=== PATIENT | male | born 1995 | race African-American/Black ===

== ENCOUNTER 2020-06-26 01:46 | Inpatient (IN) | payer MEDICAID, OTHER, SELFPAY ==
[2020-06-26] MEDS ORDERED: Boostrix 0.5 ML (Tdap) VIAL ONE (01:49)
[2020-06-26] MEDS ORDERED: Succinylcholine 200 MG/10 ml SYRINGE FS ONE ×3 (01:51→11:42)
[2020-06-26] MEDS ORDERED: Fentanyl 100 MCG/2 ML VIAL ONE ×3 (01:58→02:23)
[2020-06-26 02:01] LABS: #Basophils 0.1 thou/uL (0.0-0.2); #Eosinphils 0.3 thou/uL (0.0-0.7); #Lymphocytes 5.8 thou/uL (1.20-3.40); #Monocytes 1.1 thou/uL (0.11-0.59); #Neutrophils 6.3 thou/uL (1.40-6.50); %Basophils 0.9 % (0.0-1.0); %Eosinophils 2.2 % (0.0-10.0); %Monocytes 7.9 % (0.0-10.0); %Neutrophils 46.1 % (42.0-75.0); Mean Corpuscular HGB CONC 34.7 g/dL (32.0-36.0); Mean Corpuscular Hemoglobin 33.7 pg (27.0-31.0); Mean Corpuscular Volume 97.4 fL (78.0-98.0); Platelet Count 299 thou/uL (130-400); RBC Distribution Width 11.8 % (11.5-14.5); Red Blood Cell (RBC) Count 4.15 mill/uL (4.70-6.10); White Blood Cell (WBC) Count 13.6 thou/uL (4.8-10.8)
[2020-06-26] MEDS ORDERED: Midazolam HCl 5 mg/ml Vial ONE (02:04)
[2020-06-26] MEDS ORDERED: Rocuronium Bromide 10 MG/ML (10ML VIAL) ONE ×3 (02:04→16:32)
[2020-06-26] MEDS ORDERED: Vecuronium 10 MG VIAL ONE (02:06)
[2020-06-26] MEDS ORDERED: Sterile Water 10 ML ONE (02:06)
[2020-06-26 02:10] LABS: INR-International Normal Ratio 1.1; PTT 36.1 sec (22.9-36.1); Prothrombin Time 14.6 sec (12.0-14.7)
[2020-06-26] MEDS ORDERED: Lidocaine 1% (PF) 30 ML VIAL ONE (02:13)
[2020-06-26 02:17] LABS: ALT (SGPT) 34 U/L (8-55); AST (SGOT) 35 U/L (5-34); Albumin 3.8 g/dL (3.5-5.0); Alkaline Phosphatase 74 U/L (40-110); BUN (Urea Nitrogen) 10 mg/dL (8.9-20.6); Bilirubin, Total 0.2 mg/dL (0.2-1.2); Calc. Creatinine Clearance 0 mL/min (70-130); Calcium 7.9 mg/dL (7.8-10.44); Chloride 109 mmol/L (98-107); Glucose 135 mg/dL (70-105); Protein, Total 6.8 g/dL (6.0-8.3); Sodium 138 mmol/L (136-145)
[2020-06-26 02:24] LABS: Carbon Dioxide Less than 8 mmol/L (22-29); Potassium 2.8 mmol/L (3.5-5.1)
[2020-06-26] MEDS ORDERED: Fentanyl CADD 100 ML IV SCH ×2 (02:30→19:00)
[2020-06-26] MEDS ORDERED: PROPOFOL 200 MG/20 ML VIAL ONE (02:38)
[2020-06-26] MEDS ORDERED: Calcium Chloride 1 GM/10 ML Abboject SYRINGE ONE ×2 (02:38→16:32)
[2020-06-26] MEDS ORDERED: Sodium Bicarb 50 MEQ/50 ML Abboject 8.4% SYRINGE ONE ×2 (02:38→17:07)
[2020-06-26 02:41] LABS: Actual Bicarbonate (HCO3a) 14.8 mEq/L (22-28); Analyzer IN Cardio ER; Base Excess (BEa) -11.9 mEq/L (-2.0 to +3.0); CO2 Tension 36.7 mmHg (35.0-45.0); Calcium, Ionized (arterial) 1.13 mmol/L (1.12-1.30); Carboxyhemoglobin (COHb) 3.7 gm% (0.0-3.0); Hemoglobin (Hb) 13.8 g/dL (14.0-18.0); Potassium - ABG Lab 3.47 mmol/L (3.70-5.30)
[2020-06-26 02:46] LABS: pH, Arterial 7.22 (7.35-7.45)
[2020-06-26 02:47] LABS: ALV-art Gradient 423.125 mmHg (0-20); Puncture Site LRA
[2020-06-26] MEDS ORDERED: Amiodarone 150 MG in Dextrose 5% in Water 100 ML IVPB SCH (03:00)
[2020-06-26] MEDS: Potassium Chloride 20 MEQ in Premix Bag 1 BAG IVPB SCH ×2 (03:20→05:56)
[2020-06-26] MEDS: Amiodarone 450 MG in Dextrose 5% in Water 250 ML IVPB SCH ×2 (03:22→14:38)
[2020-06-26] MEDS ORDERED: Propofol 1,000 MG/100 ML VIAL IV ONE (03:27)
[2020-06-26] MEDS: Lactated Ringer's 1,000 ML IV SCH ×2 (03:30→11:37)
[2020-06-26] MEDS ORDERED: Dextrose 50% Abboject 50 ML SYRINGE SLOW IVP PRN (04:09)
[2020-06-26] MEDS ORDERED: Dextrose 5% in Water 1,000 ML IV PRN (04:09)
[2020-06-26] MEDS ORDERED: Ondansetron PF 4 MG/2 ML Vial IVP PRN ×2 (04:09→18:59)
[2020-06-26] MEDS ORDERED: Propofol 1,000 MG/100 ML VIAL IV PRN (04:15)
[2020-06-26] MEDS ORDERED: Propofol BOLUS 1,000 MG/100 ML VIAL IV PRN ×2 (04:15→19:00)
[2020-06-26 04:43] LABS: Bacteria/HPF None Seen HPF (None Seen); Bilirubin Negative (Negative); Blood, Urine 2+ (Negative); Clarity Clear (Clear); Glucose, Urine (Dipstick) Normal (Negative); Ketone, Urine Negative (Negative); Leukocyte Negative Leu/uL (Negative); Mucous/LPF Rare LPF (<2+); Nitrite Negative (Negative); Protein, Urine (Dipstick) Negative (Neg-Trace); RBC/HPF 0-3 HPF (0-3); Specific Gravity, Urine 1.039 (1.002-1.036); Squamous Epithelial None Seen HPF (0-3); Urobilinogen Normal mg/dL (Less than 2); WBC/HPF 0-3 HPF (0-3)
[2020-06-26 06:19] LABS: Hemoglobin 11.5 g/dL (14.0-18.0); Mean Corpuscular HGB CONC 33.8 g/dL (32.0-36.0); Mean Corpuscular Hemoglobin 31.7 pg (27.0-31.0); Mean Corpuscular Volume 93.9 fL (78.0-98.0); Mean Platelet Volume 6.1 fL (7.4-10.4); Platelet Count 266 thou/uL (130-400); RBC Distribution Width 11.7 % (11.5-14.5); Red Blood Cell (RBC) Count 3.63 mill/uL (4.70-6.10); White Blood Cell (WBC) Count 23.2 thou/uL (4.8-10.8)
[2020-06-26 07:40] LABS: Anion Gap 13 mmol/L (10-20); BUN (Urea Nitrogen) 10 mg/dL (8.9-20.6); Calc. Creatinine Clearance 141 mL/min (70-130); Carbon Dioxide 21 mmol/L (22-29); Chloride 109 mmol/L (98-107); Glucose 115 mg/dL (70-105); Potassium 4.8 mmol/L (3.5-5.1); Sodium 138 mmol/L (136-145)
[2020-06-26] MEDS ORDERED: Sodium Chloride 0.9% 500 ML IV SCH ×2 (08:15→10:00)
[2020-06-26] MEDS ORDERED: Iopamidol-370 76% 500 ML 1 ML ONE (08:54)
[2020-06-26] MEDS: Famotidine/PF 20 mg/2ml Vial SLOW IVP SCH ×2 (09:17→21:30)
[2020-06-26 10:11] LABS: ALV-art Gradient 100.375 mmHg (0-20); Actual Bicarbonate (HCO3a) 21.7 mEq/L (22-28); Base Excess (BEa) -4.7 mEq/L (-2.0 to +3.0); CO2 Tension 46.1 mmHg (35.0-45.0); Calcium, Ionized (arterial) 1.12 mmol/L (1.12-1.30); Carboxyhemoglobin (COHb) 0.3 gm% (0.0-3.0); Hemoglobin (Hb) 9.3 g/dL (14.0-18.0); O2 Tension (PaO2), arterial 198.5 mmHg (80.0-100.0); Potassium - ABG Lab 4.67 mmol/L (3.70-5.30); Puncture Site RFA; pH, Arterial 7.29 (7.35-7.45)
[2020-06-26 10:16] LABS: Amphetamine Not Detected (NotDetected); Barbiturates Screen Not Detected (NotDetected); Benzodiazepine Screen Not Detected (NotDetected); Cocaine Metabolite Screen Not Detected (NotDetected); Medtox Control Line Valid? VALID (VALID); Medtox Reader # READER 1; Methadone Not Detected (NotDetected); Methamphetamine Detected (NotDetected); Opiate Screen Not Detected (NotDetected); Oxycodone Screen Not Detected (NotDetected); Phencyclidine (PCP) Not Detected (NotDetected); THC/Cannabinoid Screen Detected (NotDetected); Tricyclic Screen Not Detected (NotDetected)
[2020-06-26 10:34] LABS: SARS-CoV-2 NAA Rapid Test Not Detected (NotDetected)
[2020-06-26] MEDS ORDERED: Ketorolac Tromethamine 30 MG/ML VIAL IVP PRN (12:13)
[2020-06-26 12:32] LABS: Magnesium 2.1 mg/dL (1.6-2.6); Phosphorus 6.1 mg/dL (2.3-4.7)
[2020-06-26 13:08] LABS: INR-International Normal Ratio 1.5; PTT 47.4 sec (22.9-36.1); Prothrombin Time 18.4 sec (12.0-14.7)
[2020-06-26 13:11] LABS: Hemoglobin 8.1 g/dL (14.0-18.0); Mean Corpuscular HGB CONC 36.1 g/dL (32.0-36.0); Mean Corpuscular Hemoglobin 34.5 pg (27.0-31.0); Mean Corpuscular Volume 95.6 fL (78.0-98.0); Mean Platelet Volume 6.6 fL (7.4-10.4); Platelet Count 123 thou/uL (130-400); Red Blood Cell (RBC) Count 2.35 mill/uL (4.70-6.10); White Blood Cell (WBC) Count 24.3 thou/uL (4.8-10.8)
[2020-06-26 13:29] LABS: Band 10 % (5-11); Lymphocytes 17 % (21-51); MDiff Complete? YES; Metamyelocyte 1 % (0-0); Monocytes 4 % (0-10); Myelocyte 1 % (0-0); Neutrophil 67 % (42-75); Platelet Morphology Comment Appears Decreased; Polychromasia SLIGHT = 2-3 cells (100X) (0-2/hpf)
[2020-06-26] MEDS ORDERED: traMADol HCl 50 MG TAB PO PRN ×2 (14:45)
[2020-06-26] MEDS ORDERED: Morphine 2 MG/ML VIAL SLOW IVP PRN ×2 (14:46→19:00)
[2020-06-26 15:58] LABS: Actual Bicarbonate (HCO3a) 11.2 mEq/L (22-28); Base Excess (BEa) -19.6 mEq/L (-2.0 to +3.0); CO2 Tension 52.8 mmHg (35.0-45.0); Calcium, Ionized (arterial) 0.84 mmol/L (1.12-1.30); Carboxyhemoglobin (COHb) 0.2 gm% (0.0-3.0); Hemoglobin (Hb) 7.4 g/dL (14.0-18.0); O2 Tension (PaO2), arterial 70.5 mmHg (80.0-100.0); Potassium - ABG Lab 6.48 mmol/L (3.70-5.30)
[2020-06-26 16:01] LABS: Puncture Site LRA; pH, Arterial 6.95 (7.35-7.45)
[2020-06-26] MEDS ORDERED: PHENYLEPHRINE-NS 100 MCG/ML 10 ML SYRINGE ONE (16:32)
[2020-06-26] MEDS ORDERED: Rocuronium Bromide 50 MG/5 ML VIAL ONE (17:41)
[2020-06-26] MEDS ORDERED: Acetaminophen 325 MG TAB PO SCH (18:00)
[2020-06-26] MEDS ORDERED: Fentanyl 100 MCG/2 ML VIAL SLOW IVP PRN ×2 (18:59)
[2020-06-26] MEDS ORDERED: DISCONTINUE PREVIOUS NARCOTIC PAIN MEDICATIONS AND BENZODIAZEPINES FS SCH (19:00)
[2020-06-26] MEDS ORDERED: Lorazepam 2 MG/ML VIAL SLOW IVP PRN (19:00)
[2020-06-26] MEDS ORDERED: Ventilator Sedation Protocol 1 EACH FS SCH (19:00)
[2020-06-26] MEDS ORDERED: Fentanyl BOLUS 250 ML IVPB PRN (19:00)
[2020-06-26 19:15] LABS: #Eosinphils 0.1 thou/uL (0.0-0.7); #Lymphocytes 1.1 thou/uL (1.20-3.40); #Neutrophils 11.9 thou/uL (1.40-6.50); %Basophils 0.1 % (0.0-1.0); %Eosinophils 0.6 % (0.0-10.0); %Lymphocytes 7.6 % (21.0-51.0); %Monocytes 6.8 % (0.0-10.0); %Neutrophils 84.9 % (42.0-75.0); Hemoglobin 13.1 g/dL (14.0-18.0); Mean Corpuscular HGB CONC 33.7 g/dL (32.0-36.0); Mean Corpuscular Hemoglobin 30.8 pg (27.0-31.0); Mean Corpuscular Volume 91.4 fL (78.0-98.0); Mean Platelet Volume 7.3 fL (7.4-10.4); Platelet Count 161 thou/uL (130-400); RBC Distribution Width 12.6 % (11.5-14.5); Red Blood Cell (RBC) Count 4.27 mill/uL (4.70-6.10)
[2020-06-26 19:17] LABS: INR-International Normal Ratio 1.5; Prothrombin Time 18.7 sec (12.0-14.7)
[2020-06-26 19:18] LABS: PTT 52.7 sec (22.9-36.1)
[2020-06-26] MEDS: Propofol 1,000 MG/100 ML VIAL IV PRN (19:21)
[2020-06-26 19:36] LABS: Lactic Acid 9.9 mmol/L (0.5-2.2)
[2020-06-26 19:45] LABS: Band 17 % (5-11); Lymphocytes 3 % (21-51); MDiff Complete? YES; Monocytes 11 % (0-10); Myelocyte 1 % (0-0); Neutrophil 68 % (42-75); Platelet Morphology Comment Appears Adequate; RBC Morphology Normal
[2020-06-26 19:47] LABS: Anion Gap 24 mmol/L (10-20); BUN (Urea Nitrogen) 15 mg/dL (8.9-20.6); Calc. Creatinine Clearance 75 mL/min (70-130); Carbon Dioxide 15 mmol/L (22-29); Chloride 111 mmol/L (98-107); Glucose 57 mg/dL (70-105); Magnesium 1.9 mg/dL (1.6-2.6); Phosphorus 5.3 mg/dL (2.3-4.7); Potassium 5.7 mmol/L (3.5-5.1); Sodium 144 mmol/L (136-145)
[2020-06-26] MEDS ORDERED: Dextrose 5 %-0.45 % NaCl 1,000 ML IV SCH (20:00)
[2020-06-26] MEDS ORDERED: FLU VACC QS2020-21(6MOS UP)/PF 60 MCG/0.5 ML SYRINGE IM ONE (21:00)
[2020-06-26] MEDS: NACL IV SCH (21:13)
[2020-06-26] MEDS: SODIUM BICARBONATE IV SCH (21:13)
[2020-06-26] MEDS: DEXTROSE IV SCH (21:13)
[2020-06-26] MEDS: Gabapentin 300 MG CAP PO SCH (21:30)
[2020-06-26] MEDS: Acetaminophen 325 MG TAB PO SCH (21:31)
[2020-06-26] MEDS ORDERED: Hydrocortisone Sod Succ/PF 100 mg/2 ml Vial IVP SCH (23:15)
[2020-06-27 00:48] LABS: Actual Bicarbonate (HCO3a) 22.3 mEq/L (22-28); Base Excess (BEa) -1.8 mEq/L (-2.0 to +3.0); CO2 Tension 35.7 mmHg (35.0-45.0); Calcium, Ionized (arterial) 0.98 mmol/L (1.12-1.30); Carboxyhemoglobin (COHb) 0.3 gm% (0.0-3.0); Hemoglobin (Hb) 10.6 g/dL (14.0-18.0); O2 Tension (PaO2), arterial 172.4 mmHg (80.0-100.0); pH, Arterial 7.41 (7.35-7.45)
[2020-06-27 00:49] LABS: Puncture Site Arterial Line
[2020-06-27 00:50] LABS: ALV-art Gradient 210.775 mmHg (0-20)
[2020-06-27] MEDS ORDERED: Calcium Chloride 1 GM/10 ML Abboject SYRINGE IVP SCH (01:00)
[2020-06-27] MEDS ORDERED: Fentanyl CADD 100 ML ONE ×2 (03:49→17:43)
[2020-06-27 04:30] LABS: #Lymphocytes 1.3 thou/uL (1.20-3.40); #Monocytes 0.8 thou/uL (0.11-0.59); #Neutrophils 13.9 thou/uL (1.40-6.50); %Eosinophils 0.1 % (0.0-10.0); %Neutrophils 86.9 % (42.0-75.0); Hemoglobin 10.3 g/dL (14.0-18.0); Mean Corpuscular Volume 88.4 fL (78.0-98.0); Mean Platelet Volume 7.6 fL (7.4-10.4); Platelet Count 113 thou/uL (130-400); RBC Distribution Width 12.8 % (11.5-14.5); Red Blood Cell (RBC) Count 3.31 mill/uL (4.70-6.10)
[2020-06-27 04:49] LABS: Lactic Acid 3.1 mmol/L (0.5-2.2)
[2020-06-27] MEDS: Acetaminophen 325 MG TAB PO SCH ×4 (04:55→21:37)
[2020-06-27 05:01] LABS: Anion Gap 12 mmol/L (10-20); BUN (Urea Nitrogen) 21 mg/dL (8.9-20.6); Calc. Creatinine Clearance 89 mL/min (70-130); Calcium 7.9 mg/dL (7.8-10.44); Carbon Dioxide 23 mmol/L (22-29); Chloride 113 mmol/L (98-107); Glucose 120 mg/dL (70-105); Magnesium 1.5 mg/dL (1.6-2.6); Phosphorus 1.4 mg/dL (2.3-4.7); Potassium 4.6 mmol/L (3.5-5.1); Sodium 143 mmol/L (136-145)
[2020-06-27 05:07] LABS: CK (CPK) 7444 U/L (30-200)
[2020-06-27] MEDS ORDERED: Sodium Phosphate 30 MMOL in Sodium Chloride 0.9% 250 ML 250 ML IVPB SCH (06:00)
[2020-06-27] MEDS ORDERED: Hydrocortisone Sod Succ/PF 100 mg/2 ml Vial IVP SCH (06:00)
[2020-06-27] MEDS ORDERED: Magnesium Sulfate 3 GM in Sodium Chloride 0.9% 250 ML 250 ML IVPB SCH (06:00)
[2020-06-27] MEDS: DEXTROSE IV SCH ×3 (06:10→21:35)
[2020-06-27] MEDS: SODIUM BICARBONATE IV SCH ×3 (06:10→21:35)
[2020-06-27] MEDS: NACL IV SCH ×3 (06:10→21:35)
[2020-06-27 07:07] LABS: INR-International Normal Ratio 1.8; PTT 43.2 sec (22.9-36.1); Prothrombin Time 21.3 sec (12.0-14.7)
[2020-06-27] MEDS ORDERED: Calcium Chloride 13.6 MEQ in Sodium Chloride 0.9% 100 ML IVPB SCH (07:30)
[2020-06-27 07:37] LABS: Base Excess (BEa) 2.9 mEq/L (-2.0 to +3.0); CO2 Tension 29.7 mmHg (35.0-45.0); Calcium, Ionized (arterial) 1.12 mmol/L (1.12-1.30); Carboxyhemoglobin (COHb) 0.3 gm% (0.0-3.0); Hemoglobin (Hb) 10.3 g/dL (14.0-18.0); O2 Tension (PaO2), arterial 141.3 mmHg (80.0-100.0); Potassium - ABG Lab 4.16 mmol/L (3.70-5.30); pH, Arterial 7.54 (7.35-7.45)
[2020-06-27 07:38] LABS: ALV-art Gradient 106.775 mmHg (0-20); Puncture Site Arterial Line
[2020-06-27] MEDS: Famotidine/PF 20 mg/2ml Vial SLOW IVP SCH ×2 (08:54→20:25)
[2020-06-27] MEDS: Gabapentin 300 MG CAP PO SCH ×2 (08:54→20:23)
[2020-06-27] MEDS: Propofol 1,000 MG/100 ML VIAL IV PRN ×2 (09:39→20:48)
[2020-06-27 16:40] LABS: #Lymphocytes 1.5 thou/uL (1.20-3.40); #Monocytes 0.7 thou/uL (0.11-0.59); #Neutrophils 16.6 thou/uL (1.40-6.50); %Eosinophils 0.1 % (0.0-10.0); %Monocytes 3.9 % (0.0-10.0); Hemoglobin 9.1 g/dL (14.0-18.0); Mean Corpuscular Hemoglobin 29.5 pg (27.0-31.0); Mean Corpuscular Volume 89.4 fL (78.0-98.0); Mean Platelet Volume 7.6 fL (7.4-10.4); Platelet Count 99 thou/uL (130-400); Red Blood Cell (RBC) Count 3.08 mill/uL (4.70-6.10); White Blood Cell (WBC) Count 18.9 thou/uL (4.8-10.8)
[2020-06-27 16:57] LABS: Anion Gap 8 mmol/L (10-20); BUN (Urea Nitrogen) 21 mg/dL (8.9-20.6); Calc. Creatinine Clearance 109 mL/min (70-130); Calcium 7.8 mg/dL (7.8-10.44); Carbon Dioxide 27 mmol/L (22-29); Chloride 113 mmol/L (98-107); Glucose 129 mg/dL (70-105); Phosphorus 3.2 mg/dL (2.3-4.7); Potassium 4.3 mmol/L (3.5-5.1); Sodium 144 mmol/L (136-145)
[2020-06-28] MEDS: Acetaminophen 325 MG TAB PO SCH ×3 (03:16→16:43)
[2020-06-28] MEDS: Propofol 1,000 MG/100 ML VIAL IV PRN (04:31)
[2020-06-28 05:42] LABS: #Eosinphils 0.2 thou/uL (0.0-0.7); #Lymphocytes 2.1 thou/uL (1.20-3.40); #Monocytes 0.7 thou/uL (0.11-0.59); #Neutrophils 13.8 thou/uL (1.40-6.50); %Basophils 0.2 % (0.0-1.0); %Eosinophils 1.2 % (0.0-10.0); %Lymphocytes 12.3 % (21.0-51.0); %Neutrophils 82.3 % (42.0-75.0); Hemoglobin 8.7 g/dL (14.0-18.0); Mean Corpuscular HGB CONC 34.1 g/dL (32.0-36.0); Mean Corpuscular Hemoglobin 30.7 pg (27.0-31.0); Mean Corpuscular Volume 90.2 fL (78.0-98.0); Mean Platelet Volume 7.6 fL (7.4-10.4); Platelet Count 92 thou/uL (130-400); RBC Distribution Width 12.9 % (11.5-14.5); Red Blood Cell (RBC) Count 2.83 mill/uL (4.70-6.10); White Blood Cell (WBC) Count 16.8 thou/uL (4.8-10.8)
[2020-06-28 06:10] LABS: Anion Gap 6 mmol/L (10-20); BUN (Urea Nitrogen) 19 mg/dL (8.9-20.6); Calc. Creatinine Clearance 120 mL/min (70-130); Calcium 7.4 mg/dL (7.8-10.44); Carbon Dioxide 28 mmol/L (22-29); Chloride 114 mmol/L (98-107); Glucose 103 mg/dL (70-105); Phosphorus 2.1 mg/dL (2.3-4.7); Potassium 3.5 mmol/L (3.5-5.1); Sodium 144 mmol/L (136-145)
[2020-06-28] MEDS: DEXTROSE IV SCH (06:23)
[2020-06-28] MEDS: SODIUM BICARBONATE IV SCH (06:23)
[2020-06-28] MEDS: NACL IV SCH (06:23)
[2020-06-28 07:14] LABS: CO2 Tension 38.5 mmHg (35.0-45.0); Calcium, Ionized (arterial) 1.08 mmol/L (1.12-1.30); Carboxyhemoglobin (COHb) 0.3 gm% (0.0-3.0); Hemoglobin (Hb) 8.9 g/dL (14.0-18.0); O2 Tension (PaO2), arterial 137.2 mmHg (80.0-100.0); Potassium - ABG Lab 3.57 mmol/L (3.70-5.30); pH, Arterial 7.46 (7.35-7.45)
[2020-06-28 07:15] LABS: Puncture Site Arterial Line
[2020-06-28 07:17] LABS: ALV-art Gradient 99.875 mmHg (0-20)
[2020-06-28] MEDS: Famotidine/PF 20 mg/2ml Vial SLOW IVP SCH (08:20)
[2020-06-28] MEDS: Senokot S 8.6-50 MG TAB PO SCH ×2 (08:20→20:56)
[2020-06-28] MEDS: Polyethylene Glycol 3350 17 GM Packet PO SCH (08:20)
[2020-06-28] MEDS: Gabapentin 300 MG CAP PO SCH ×2 (08:21→20:56)
[2020-06-28] MEDS ORDERED: Fentanyl CADD 100 ML ONE (08:34)
[2020-06-28] MEDS ORDERED: Furosemide 20 MG/2 ML VIAL SLOW IVP SCH (13:00)
[2020-06-28] MEDS: Furosemide 40 MG/4 ML VIAL ONE ×2 (13:04)
[2020-06-28] MEDS ORDERED: traMADol HCl 50 MG TAB PO PRN (16:45)
[2020-06-28] MEDS ORDERED: cefTRIAXone\\ROCEPHIN 2 GM in Sodium Chloride 0.9% 100 ML IVPB SCH (17:00)
[2020-06-28] MEDS: traMADol HCl 50 MG TAB PO SCH ×2 (17:38→23:49)
[2020-06-28] MEDS ORDERED: fentaNYL Citrate/PF 2,000 MCG in Sodium Chloride 0.9% 60 ML IV SCH (19:15)
[2020-06-28] MEDS: Famotidine 20 MG TAB PO SCH (20:56)
[2020-06-28] MEDS: Enoxaparin Sodium 40 MG/0.4 ML SYRINGE SC SCH (20:57)
[2020-06-28] MEDS: Furosemide 20 MG/2 ML VIAL SLOW IVP SCH (21:18)
[2020-06-28] MEDS: Acetaminophen 500 MG TAB PO SCH (21:19)
[2020-06-29] MEDS: Acetaminophen 500 MG TAB PO SCH ×4 (03:54→21:05)
[2020-06-29 04:53] LABS: Anion Gap 11 mmol/L (10-20); BUN (Urea Nitrogen) 15 mg/dL (8.9-20.6); Calc. Creatinine Clearance 141 mL/min (70-130); Calcium 7.6 mg/dL (7.8-10.44); Carbon Dioxide 27 mmol/L (22-29); Chloride 104 mmol/L (98-107); Glucose 85 mg/dL (70-105); Magnesium 1.8 mg/dL (1.6-2.6); Phosphorus 3.8 mg/dL (2.3-4.7); Potassium 4.4 mmol/L (3.5-5.1); Sodium 138 mmol/L (136-145)
[2020-06-29 04:54] LABS: Band 15 % (5-11); Eosinophils 2 % (0-10); Hemoglobin 10.3 g/dL (14.0-18.0); Lymphocytes 9 % (21-51); MDiff Complete? YES; Mean Corpuscular Hemoglobin 31.1 pg (27.0-31.0); Mean Corpuscular Volume 91.5 fL (78.0-98.0); Mean Platelet Volume 7.6 fL (7.4-10.4); Monocytes 10 % (0-10); Neutrophil 64 % (42-75); Platelet Count 114 thou/uL (130-400); Platelet Morphology Comment Appears Decreased; RBC Distribution Width 12.6 % (11.5-14.5); Red Blood Cell (RBC) Count 3.32 mill/uL (4.70-6.10); White Blood Cell (WBC) Count 21.8 thou/uL (4.8-10.8)
[2020-06-29 05:03] LABS: CK (CPK) 7395 U/L (30-200)
[2020-06-29] MEDS: Furosemide 20 MG/2 ML VIAL SLOW IVP SCH (05:43)
[2020-06-29] MEDS: traMADol HCl 50 MG TAB PO SCH ×4 (05:45→23:05)
[2020-06-29] MEDS ORDERED: Magnesium 2 GM/50 ML 2 GM in Premix Bag 1 BAG IVPB SCH (08:30)
[2020-06-29] MEDS: Senokot S 8.6-50 MG TAB PO SCH ×2 (10:10→19:24)
[2020-06-29] MEDS: Gabapentin 300 MG CAP PO SCH ×2 (10:10→19:23)
[2020-06-29] MEDS: Famotidine 20 MG TAB PO SCH (10:11)
[2020-06-29] MEDS: Polyethylene Glycol 3350 17 GM Packet PO SCH (10:16)
[2020-06-29] MEDS: Enoxaparin Sodium 40 MG/0.4 ML SYRINGE SC SCH (19:24)
[2020-06-29] MEDS: Cyclobenzaprine 10 MG TAB PO PRN (21:05)
[2020-06-30] MEDS: Acetaminophen 500 MG TAB PO SCH ×4 (03:23→21:31)
[2020-06-30] MEDS: traMADol HCl 50 MG TAB PO SCH ×4 (05:02→23:31)
[2020-06-30] MEDS: Cyclobenzaprine 10 MG TAB PO PRN ×2 (05:02→23:32)
[2020-06-30 05:48] LABS: #Eosinphils 0.3 thou/uL (0.0-0.7); #Lymphocytes 1.3 thou/uL (1.20-3.40); #Monocytes 1.9 thou/uL (0.11-0.59); #Neutrophils 14.5 thou/uL (1.40-6.50); %Basophils 0.1 % (0.0-1.0); %Eosinophils 1.4 % (0.0-10.0); %Lymphocytes 7.1 % (21.0-51.0); %Monocytes 10.3 % (0.0-10.0); Hemoglobin 10.6 g/dL (14.0-18.0); Mean Corpuscular HGB CONC 33.7 g/dL (32.0-36.0); Mean Corpuscular Hemoglobin 30.8 pg (27.0-31.0); Mean Corpuscular Volume 91.5 fL (78.0-98.0); Mean Platelet Volume 7.2 fL (7.4-10.4); Platelet Count 150 thou/uL (130-400); RBC Distribution Width 12.2 % (11.5-14.5); Red Blood Cell (RBC) Count 3.43 mill/uL (4.70-6.10); White Blood Cell (WBC) Count 17.9 thou/uL (4.8-10.8)
[2020-06-30] MEDS: Gabapentin 300 MG CAP PO SCH ×2 (09:32→20:08)
[2020-06-30] MEDS: Senokot S 8.6-50 MG TAB PO SCH ×2 (09:34→20:08)
[2020-06-30] MEDS: Polyethylene Glycol 3350 17 GM Packet PO SCH (09:36)
[2020-06-30] MEDS: Ferrous Sulfate 325 MG TAB PO SCH (17:41)
[2020-06-30] MEDS: Ascorbic Acid 500 mg Chewable Tablet PO SCH (20:08)
[2020-06-30] MEDS: Enoxaparin Sodium 40 MG/0.4 ML SYRINGE SC SCH (20:09)
[2020-07-01] MEDS: Acetaminophen 500 MG TAB PO SCH ×4 (04:03→22:16)
[2020-07-01] MEDS: traMADol HCl 50 MG TAB PO SCH ×4 (06:02→23:37)
[2020-07-01] MEDS: Gabapentin 300 MG CAP PO SCH ×2 (09:35→20:53)
[2020-07-01] MEDS: Senokot S 8.6-50 MG TAB PO SCH ×2 (09:35→20:53)
[2020-07-01] MEDS: Ferrous Sulfate 325 MG TAB PO SCH ×2 (09:37→16:45)
[2020-07-01] MEDS: Ascorbic Acid 500 mg Chewable Tablet PO SCH ×2 (09:37→20:53)
[2020-07-01] MEDS: Polyethylene Glycol 3350 17 GM Packet PO SCH (09:38)
[2020-07-01] MEDS: Cyclobenzaprine 10 MG TAB PO PRN ×2 (09:38→20:53)
[2020-07-01] MEDS: Ibuprofen 200 MG TAB PO SCH ×2 (14:29→22:15)
[2020-07-01] MEDS: Enoxaparin Sodium 40 MG/0.4 ML SYRINGE SC SCH (20:53)
[2020-07-02] MEDS: Acetaminophen 500 MG TAB PO SCH ×3 (04:16→15:33)
[2020-07-02] MEDS: traMADol HCl 50 MG TAB PO SCH ×2 (05:23→11:18)
[2020-07-02] MEDS: Ibuprofen 200 MG TAB PO SCH ×3 (05:24→21:08)
[2020-07-02 06:10] LABS: Anion Gap 14 mmol/L (10-20); BUN (Urea Nitrogen) 14 mg/dL (8.9-20.6); Calc. Creatinine Clearance 143 mL/min (70-130); Calcium 8.5 mg/dL (7.8-10.44); Carbon Dioxide 22 mmol/L (22-29); Chloride 105 mmol/L (98-107); Glucose 89 mg/dL (70-105); Magnesium 1.9 mg/dL (1.6-2.6); Phosphorus 3.5 mg/dL (2.3-4.7); Potassium 4.2 mmol/L (3.5-5.1); Sodium 137 mmol/L (136-145)
[2020-07-02 06:15] LABS: Troponin I 0.024 ng/mL (< 0.028)
[2020-07-02 06:39] LABS: Band 12 % (5-11); Eosinophils 2 % (0-10); Hemoglobin 11.4 g/dL (14.0-18.0); Lymphocytes 15 % (21-51); MDiff Complete? YES; Mean Corpuscular HGB CONC 34.1 g/dL (32.0-36.0); Mean Corpuscular Hemoglobin 31.2 pg (27.0-31.0); Mean Corpuscular Volume 91.5 fL (78.0-98.0); Mean Platelet Volume 6.3 fL (7.4-10.4); Monocytes 18 % (0-10); Neutrophil 53 % (42-75); Platelet Count 279 thou/uL (130-400); RBC Distribution Width 12.7 % (11.5-14.5); Red Blood Cell (RBC) Count 3.65 mill/uL (4.70-6.10); White Blood Cell (WBC) Count 16.1 thou/uL (4.8-10.8)
[2020-07-02] MEDS: Senokot S 8.6-50 MG TAB PO SCH ×2 (08:44→21:07)
[2020-07-02] MEDS: Cyclobenzaprine 10 MG TAB PO PRN (08:44)
[2020-07-02] MEDS: Ferrous Sulfate 325 MG TAB PO SCH ×2 (08:45→17:17)
[2020-07-02] MEDS: Ascorbic Acid 500 mg Chewable Tablet PO SCH ×2 (08:46→21:07)
[2020-07-02] MEDS: Gabapentin 300 MG CAP PO SCH ×2 (08:46→21:07)
[2020-07-02] MEDS: Polyethylene Glycol 3350 17 GM Packet PO SCH (08:48)
[2020-07-02] MEDS: Acetaminophen/Codeine 30-300mg Tablet PO SCH (17:17)
[2020-07-02] MEDS: Enoxaparin Sodium 40 MG/0.4 ML SYRINGE SC SCH (21:09)
[2020-07-03] MEDS: Acetaminophen/Codeine 30-300mg Tablet PO SCH ×5 (00:30→23:11)
[2020-07-03 06:16] VITALS: BMI 21.2
[2020-07-03] MEDS: Ibuprofen 200 MG TAB PO SCH ×3 (06:18→23:10)
[2020-07-03] MEDS: Senokot S 8.6-50 MG TAB PO SCH ×2 (09:08→20:33)
[2020-07-03] MEDS: Ferrous Sulfate 325 MG TAB PO SCH ×2 (09:09→17:31)
[2020-07-03] MEDS: Polyethylene Glycol 3350 17 GM Packet PO SCH (09:09)
[2020-07-03] MEDS: Ascorbic Acid 500 mg Chewable Tablet PO SCH ×2 (09:09→20:34)
[2020-07-03] MEDS: Gabapentin 300 MG CAP PO SCH ×2 (09:09→20:34)
[2020-07-03] MEDS: Cyclobenzaprine 10 MG TAB PO PRN (20:33)
[2020-07-03] MEDS: Enoxaparin Sodium 40 MG/0.4 ML SYRINGE SC SCH (20:33)
[2020-07-04] MEDS: Ibuprofen 200 MG TAB PO SCH ×3 (07:34→22:01)
[2020-07-04] MEDS: Acetaminophen/Codeine 30-300mg Tablet PO SCH ×4 (07:34→23:00)
[2020-07-04] MEDS: Ascorbic Acid 500 mg Chewable Tablet PO SCH ×2 (08:55→22:00)
[2020-07-04] MEDS: Ferrous Sulfate 325 MG TAB PO SCH ×2 (08:55→17:22)
[2020-07-04] MEDS: Gabapentin 300 MG CAP PO SCH ×2 (08:55→22:00)
[2020-07-04] MEDS: Polyethylene Glycol 3350 17 GM Packet PO SCH (08:56)
[2020-07-04] MEDS: Senokot S 8.6-50 MG TAB PO SCH ×2 (08:56→22:12)
[2020-07-04] MEDS ORDERED: diphenhydrAMINE 50 MG CAP PO PRN (19:02)
[2020-07-04] MEDS: Enoxaparin Sodium 40 MG/0.4 ML SYRINGE SC SCH (22:00)
[2020-07-04] MEDS: Cyclobenzaprine 10 MG TAB PO PRN (23:00)
[2020-07-05] MEDS: Acetaminophen/Codeine 30-300mg Tablet PO SCH ×3 (06:03→17:35)
[2020-07-05] MEDS: Ibuprofen 200 MG TAB PO SCH ×3 (06:03→21:44)
[2020-07-05] MEDS: Senokot S 8.6-50 MG TAB PO SCH ×2 (08:27→20:21)
[2020-07-05] MEDS: Ferrous Sulfate 325 MG TAB PO SCH ×2 (08:27→17:35)
[2020-07-05] MEDS: Polyethylene Glycol 3350 17 GM Packet PO SCH (08:27)
[2020-07-05] MEDS: Gabapentin 300 MG CAP PO SCH ×2 (08:27→20:21)
[2020-07-05] MEDS: Ascorbic Acid 500 mg Chewable Tablet PO SCH ×2 (08:28→20:22)
[2020-07-05] MEDS ORDERED: Amlodipine 5 MG TAB PO SCH (09:00)
[2020-07-05] MEDS: Enoxaparin Sodium 40 MG/0.4 ML SYRINGE SC SCH (20:22)
[2020-07-06] MEDS: Acetaminophen/Codeine 30-300mg Tablet PO SCH ×3 (00:06→13:01)
[2020-07-06] MEDS: Ibuprofen 200 MG TAB PO SCH ×2 (05:10→13:01)
[2020-07-06] MEDS: Ferrous Sulfate 325 MG TAB PO SCH (08:42)
[2020-07-06] MEDS: Polyethylene Glycol 3350 17 GM Packet PO SCH (08:42)
[2020-07-06] MEDS: Senokot S 8.6-50 MG TAB PO SCH (08:42)
[2020-07-06] MEDS: Gabapentin 300 MG CAP PO SCH (08:43)
[2020-07-06] MEDS: Ascorbic Acid 500 mg Chewable Tablet PO SCH (08:43)
[2020-07-06] MEDS ORDERED: Amlodipine 10 MG TAB PO SCH (09:00)
[2020-07-06 11:30] VITALS: BP 167/109; TEMP 98.2
== END 2020-07-06 14:56 | disposition home or self-care (01) | DRG 981 ==
LOC: ERS 01:46 → CCU 02:38 → EEVIPCON 02:38 → SURG A 06-29 12:43
PROVIDERS: ADMIT Surgery; ATTEND Surgery
PROC: 0BBC0ZZ Excision of Right Upper Lung Lobe, Open Approach (ICD-10-PCS; principal; 2020-06-26)
PROC: 0W9930Z Drainage of Right Pleural Cavity with Drainage Device, Percutaneous Approach (ICD-10-PCS; 2020-06-26)
PROC: 30233K1 Transfusion of Nonautologous Frozen Plasma into Peripheral Vein, Percutaneous Approach (ICD-10-PCS; 2020-06-26)
PROC: 30233N1 Transfusion of Nonautologous Red Blood Cells into Peripheral Vein, Percutaneous Approach (ICD-10-PCS; 2020-06-26)
PROC: 30233R1 Transfusion of Nonautologous Platelets into Peripheral Vein, Percutaneous Approach (ICD-10-PCS; 2020-06-26)
PROC: 30233M1 Transfusion of Nonautologous Plasma Cryoprecipitate into Peripheral Vein, Percutaneous Approach (ICD-10-PCS; 2020-06-26)
PROC: 5A1945Z Respiratory Ventilation, 24-96 Consecutive Hours (ICD-10-PCS; 2020-06-26)
PROC: 5A12012 Performance of Cardiac Output, Single, Manual (ICD-10-PCS; 2020-06-26)
PROC: 0BH17EZ Insertion of Endotracheal Airway into Trachea, Via Natural or Artificial Opening (ICD-10-PCS; 2020-06-26)
PROC: 5A1935Z Respiratory Ventilation, Less than 24 Consecutive Hours (ICD-10-PCS; 2020-06-26)
PROC: 0BH17EZ Insertion of Endotracheal Airway into Trachea, Via Natural or Artificial Opening (ICD-10-PCS; 2020-06-26)
DX: S27.391A Other injuries of lung, unilateral, initial encounter (principal); I46.9 Cardiac arrest, cause unspecified; T79.6XXA Traumatic ischemia of muscle, initial encounter; J96.01 Acute respiratory failure with hypoxia; E87.2 Acidosis; D62 Acute posthemorrhagic anemia; S21.131A Puncture wound without foreign body of right front wall of thorax without penetration into thoracic cavity, initial encounter; Z20.822 Contact with and (suspected) exposure to COVID-19; Z23 Encounter for immunization; Z78.1 Physical restraint status; S27.321A Contusion of lung, unilateral, initial encounter; S27.2XXA Traumatic hemopneumothorax, initial encounter; E87.6 Hypokalemia; E83.39 Other disorders of phosphorus metabolism; I48.91 Unspecified atrial fibrillation; S42.021A Displaced fracture of shaft of right clavicle, initial encounter for closed fracture; E83.51 Hypocalcemia; E83.42 Hypomagnesemia; W34.00XA Accidental discharge from unspecified firearms or gun, initial encounter; Z28.21 Immunization not carried out because of patient refusal
CPT/HCPCS: 31500; 31624; 36415; 36416; 36430; 36600; 51702; 70498; 71045; 71260; 72125; 80048; 80053; 80306; 81003; 81015; 82533; 82550; 82805; 83605; 83735; 84100; 84484; 85025; 85384; 85610; 85730; 86850; 86900; 86901; 87070; 87205; 90715; 92950; 93005; 93010; 93306; 94002; 94003; 94640; 96374; 96375; A4306; G0390; J0282; J0690; J0696; J1650; J1720; J1940; J2001; J2250; J2704; J3010; J3475; J3480; J3490; J7030; J7042; J7050; J7070; J7620; P9012; P9016; P9035; P9045; P9059; Q9967; S0028; U0002

== ENCOUNTER 2020-09-02 10:23 | Outpatient (CLI) | payer SELFPAY | END 2020-09-02 10:24 | disposition home or self-care (01) | LOC: RAD 10:23 | PROVIDERS: ATTEND Family Medicine | DX: S42.021D Displaced fracture of shaft of right clavicle, subsequent encounter for fracture with routine healing (principal); S14.3XXS Injury of brachial plexus, sequela ==